=== PATIENT | female | born 1955 | race Caucasian/White ===

== ENCOUNTER 2019-05-27 06:56 | Emergency (ER) | payer OTHER ==
[2019-05-27] MEDS ORDERED: Sodium Chloride 0.9% 1,000 ML IV ONE (07:30)
[2019-05-27 07:59] LABS: % EOSINOPHILS 0.6 % (0.0-5.0); % LYMPHOCYTES 14.9 % (20.0-50.0); % MONOCYTES 3.8 % (2.0-10.0); % NEUTROPHILS 80.7 % (40.0-80.0); HEMATOCRIT 42.5 % (41.0-60); HEMOGLOBIN 14.2 gm/dL (12-16); LYMPHOCYTE ABSOLUTE 1.2 Th/cmm (1.5-3.0); MEAN CELL VOLUME 91.9 fl (81-100); MEAN CORPUSCULAR HEMOGLOBIN 30.7 pg (27.0-31.0); MEAN CORPUSCULAR HGB CONC 33.4 pg (28.0-36.0); MONOCYTE ABSOLUTE 0.3 Th/cmm (0.3-1.0); NEUTROPHILE ABSOLUTE 6.4 Th/cmm (1.8-8.0); PLATELET COUNT 185 Th/cmm (150-400); RED BLOOD COUNT 4.62 Mil/cmm (3.80-5.10); RED CELL DISTRIBUTION WIDTH 12.2 % (11.5-20.0); WHITE BLOOD COUNT 7.9 Th/cmm (4.8-10.8)
[2019-05-27 08:00] LABS: INR 1.01 (0.5-1.4)
[2019-05-27 08:06] LABS: ALB/GLOB RATIO 1.5 (1.0-1.8); ALBUMIN 4.4 gm/dL (3.7-5.3); ALKALINE PHOSPHATASE 71 U/L (34-104); AMYLASE SERUM 32 U/L (29-103); ANION GAP 11.7 (7.0-16.0); BILIRUBIN,TOTAL 0.7 mg/dL (0.3-1.0); BUN - UREA NITROGEN 11 mg/dL (7-25); CALCIUM SERUM 9.2 mg/dL (8.6-10.3); CARBON DIOXIDE 26.8 mEq/L (21.0-31.0); CHLORIDE 102 mEq/L (98-107); CHOLESTEROL 144 mg/dL (<200); CREATININE - SERUM 0.7 mg/dL (0.6-1.2); CREATININE KINASE 56 U/L (30-223); GFR AFRICAN-AMERICAN > 60.0 ml/min (>90); GFR NON AFRICAN-AMERICAN > 60.0 ml/min; GLUCOSE 127 mg/dL (70-105); HDL -HIGH DENSITY LIPOPROTEIN 52 mg/dL (23-92); LIPASE 32 U/L (11-82); POTASSIUM SERUM 3.5 mEq/L (3.5-5.1); SGOT 23 U/L (13-39); SGPT/ALT 30 U/L (7-52); SODIUM SERUM 137 mEq/L (136-145); TOTAL PROTEIN,SERUM 7.3 gm/dL (6.0-8.3); TRIGLYCERIDES 99 mg/dL (<150)
[2019-05-27] MEDS ORDERED: Morphine Sulfate 2 mg/mL 1mL Syr IV STA (08:09)
[2019-05-27] MEDS ORDERED: Morphine Sulfate 2 mg/mL 1mL Syr ONE (08:13)
[2019-05-27 08:58] LABS: URINE SOURCE CLEAN C
[2019-05-27 09:01] LABS: URINE BILIRUBIN NEGATIVE (NEGATIVE); URINE BLOOD TRACE (NEGATIVE); URINE GLUCOSE (UA) NEGATIVE (NEGATIVE); URINE KETONE NEGATIVE (NEGATIVE); URINE LEUKOCYTE ESTERASE NEGATIVE (NEGATIVE); URINE MICROSCOPIC INDICATED? YES; URINE NITRATE NEGATIVE (NEGATIVE); URINE PROTEIN NEGATIVE (NEGATIVE); URINE UROBILINOGEN 0.2 E.U./dL (0.2 - 1.0)
[2019-05-27 09:11] LABS: URINE BACTERIA NONE SEEN /hpf (NONE SEEN); URINE CLARITY CLEAR (CLEAR); URINE COLOR YELLOW; URINE EPITHELIAL CELLS FEW /lpf (FEW); URINE RBC 0-2 /hpf (0-5); URINE WBC 0-2 /hpf (0-5)
[2019-05-27] MEDS ORDERED: IOHEXOL 300mgI/mL 100 ML VIAL ONE (09:56)
--- NOTE | 2019-05-27 10:47 | Diagnostic Imaging Report ---
CT scan abdomen and pelvis with intravenous contrast HISTORY: Pain Total DLP equals 622 CTDI equals 12.5 Following administration of intravenous contrast, axial sections were obtained from the xiphoid process down to the pubic symphysis The liver exhibits a normal size and contour. No focal lesions. The spleen appears normal. No focal abnormality seen within the pancreas. No focal renal lesions Exam of the pelvis demonstrates thickening of the mckeon through a segment of the sigmoid colon. Numerous diverticula are seen. Slight haziness of the adjacent pericolonic fat. Diverticulitis cannot be excluded. No discrete abscess formation is seen. No abnormality seen in the region of appendix. General changes noted to the spine. IMPRESSION: 1. Abnormal changes along a segment of the sigmoid colon. Diverticulitis cannot be excluded. No discrete abscess formation. Clinical correlation is needed.
[2019-05-27] MEDS ORDERED: Levofloxacin 500mg/100mL 500 MG/100 ML BAG IV ONE ×2 (11:25→11:57)
--- NOTE | 2019-05-27 14:41 | ED Physician Chart ---
ED Chief Complaint/HPI - Patient Information Date Seen:: 05/27/19 Time Seen:: 07:00 Chief Complaint:: Abdominal Pain History of Present Illness:: onset x 2 days of diffuse crampy abdominal pain, N/V/D x 10; pt denies trauma, H /As, S/T, neck pain, C/P, SOB, cough, A/C, fever, chills, or urinary s/s Allergies:: Allergies Allergy/AdvReac Type Severity Reaction Status Date / Time ibuprofen [From Motrin] Allergy Verified 05/27/19 07:11 Vitals:: Vital Signs - 8 hr 05/27/19 05/27/19 05/27/19 07:05 08:26 10:30 Temp 98.3 F HR 85 63 82 RR 18 16 16 BP 141/76 146/73 128/71 O2 Sat % 97 97 98 05/27/19 13:00 Temp HR 88 RR 16 BP 143/75 O2 Sat % 97 Historian:: Patient, Family Member Review:: Nurse's Note Reviewed, Old Chart Reviewed ED Review of Systems - Review of Systems General/Constitutional: No fever, No chills, No weight loss, No weakness, No diaphoresis, No edema, No loss of appetite Skin: No skin lesions, No rash, No bruising Head: No headache, No light-headedness Eyes: No loss of vision, No pain, No diplopia ENT: No earache, No nasal drainage, No sore throat, No tinnitus Neck: No neck pain, No swelling, No thyromegaly, No stiffness, No mass noted Cardio Vascular: No chest pain, No palpitations, No PND, No orthopnea, No edema Pulmonary: No SOB, No cough, No sputum, No wheezing GI: No nausea, No vomiting, No diarrhea, No pain, No melena, No hematochezia, No constipation, No hematemesis G/U: No dysuria, No frequency, No hematuria, No nacturia 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, No abnormal vaginal bleed, No contraction Musculoskeletal: No bone or joint pain, No back pain, No muscle pain Endocrine: No polyuria, No polydipsia Psychiatric: No prior psych history, No depression, No anxiety, No suicidal ideation, No homicidal ideation, No auditory hallucination, No visual hallucination Hematopoietic: No bruising, No lymphadenopathy Allergic/Immuno: No urticaria, No angioedema Neurological: No syncope, No focal symptoms, No weakness, No paresthesia, No headache, No seizure, No dizziness, No confusion, No vertigo ED Past Medical History - Past Medical History Obtainable: Yes Past Medical History: HTN Family History: HTN Social History: Non Smoker, No Alcohol, No Drug Use, Surgical History: None Psychiatricy History: None Medication: Reviewed Family Medical History - Family Member Mother History Unknown: Yes ED Physical Exam - Physical Examination General/Constitutional: Awake, Well-developed, well-nourished, Alert, No distress, GCS 15, Non-toxic appearing, Ambulatory Head: Atraumatic Eyes: Lids, conjuctiva normal, PERRL, EOMI Skin: Nl inspection, No rash, No skin lesions, No ecchymosis, Well hydrated, No lymphadenopathy ENMT: External ears, nose nl, TM canals nl, Nasal exam nl, Lips, teeth, gums nl , Oropharynx nl, Tonsils nl Neck: Nontender, Full ROM w/o pain, No JVD, No nuchal rigidity, No bruit, No mass, No stridor Respiratory: Nl effort/Exclusion, Clear to Auscultation, No Wheeze/Rhonchi/Rales Cardio Vascular: RRR, No murmur, gallop, rubs, NL S1 S2, Carotid/Femoral/Distal pulses equal bilaterally GI: No tenderness/rebounding/guarding, No organomegaly, No hernia, Normal BS's, Nondistended, No mass/bruits, No McBurney tenderness, Rectum exam nl Other GI comments:: + LLQ Tenderness; no pulsatile masses : No CVA tenderness Extremities: No tenderness or effusion, Full ROM, normal strength in all extremities, No edema, Normal digits & nails Neuro/Psych: Alert/oriented, DTR's symmetric, Normal sensory exam, Normal motor strength, Judgement/insight normal, Mood normal, Normal gait, No focal deficits Misc: Normal back, No paraspinal tenderness ED Labs/Radiology/EKG Results - Lab Results Results: Laboratory Tests 05/27/19 05/27/19 05/27/19 07:35 07:35 07:35 WBC 7.9 RBC 4.62 Hgb 14.2 Hct 42.5 MCV 91.9 MCH 30.7 MCHC Differential 33.4 RDW 12.2 Plt Count 185 MPV 8.6 Neutrophils % 80.7 H Lymphocytes % 14.9 L Monocytes % 3.8 Eosinophils % 0.6 Basophils % 0.0 PT 10.5 INR 1.01 Sodium 137 Potassium 3.5 Chloride 102 Carbon Dioxide 26.8 Anion Gap 11.7 BUN 11 Creatinine 0.7 Est GFR ( Amer) > 60.0 Est GFR (Non-Af Amer) > 60.0 BUN/Creatinine Ratio 15.7 Glucose 127 H Calcium 9.2 Total Bilirubin 0.7 AST 23 ALT 30 Alkaline Phosphatase 71 Creatine Kinase 56 Troponin I B-Natriuretic Peptide Total Protein 7.3 Albumin 4.4 Globulin 2.9 Albumin/Globulin Ratio 1.5 Triglycerides 99 Cholesterol 144 LDL Cholesterol Direct 82 HDL Cholesterol 52 Amylase 32 Lipase 32 Serum , Qual Urine Source Urine Color Urine Clarity Urine pH Ur Specific [place] Urine Protein Urine Glucose (UA) Urine Ketones Urine Blood Urine Nitrate Urine Bilirubin Urine Urobilinogen Ur Leukocyte Esterase Urine RBC Urine WBC Ur Epithelial Cells Urine Bacteria 05/27/19 05/27/19 05/27/19 07:35 07:35 07:35 WBC RBC Hgb Hct MCV MCH MCHC Differential RDW Plt Count MPV Neutrophils % Lymphocytes % Monocytes % Eosinophils % Basophils % PT INR Sodium Potassium Chloride Carbon Dioxide Anion Gap BUN Creatinine Est GFR ( Amer) Est GFR (Non-Af Amer) BUN/Creatinine Ratio Glucose Calcium Total Bilirubin AST ALT Alkaline Phosphatase Creatine Kinase Troponin I < 0.01 L B-Natriuretic Peptide 13.5 Total Protein Albumin Globulin Albumin/Globulin Ratio Triglycerides Cholesterol LDL Cholesterol Direct HDL Cholesterol Amylase Lipase Serum , Qual NEGATIVE Urine Source Urine Color Urine Clarity Urine pH Ur Specific [place] Urine Protein Urine Glucose (UA) Urine Ketones Urine Blood Urine Nitrate Urine Bilirubin Urine Urobilinogen Ur Leukocyte Esterase Urine RBC Urine WBC Ur Epithelial Cells Urine Bacteria 05/27/19 08:47 WBC RBC Hgb Hct MCV MCH MCHC Differential RDW Plt Count MPV Neutrophils % Lymphocytes % Monocytes % Eosinophils % Basophils % PT INR Sodium Potassium Chloride Carbon Dioxide Anion Gap BUN Creatinine Est GFR ( Amer) Est GFR (Non-Af Amer) BUN/Creatinine Ratio Glucose Calcium Total Bilirubin AST ALT Alkaline Phosphatase Creatine Kinase Troponin I B-Natriuretic Peptide Total Protein Albumin Globulin Albumin/Globulin Ratio Triglycerides Cholesterol LDL Cholesterol Direct HDL Cholesterol Amylase Lipase Serum , Qual Urine Source CLEAN C Urine Color YELLOW Urine Clarity CLEAR Urine pH 6.0 Ur Specific [place] <= 1.005 Urine Protein NEGATIVE Urine Glucose (UA) NEGATIVE Urine Ketones NEGATIVE Urine Blood TRACE Urine Nitrate NEGATIVE Urine Bilirubin NEGATIVE Urine Urobilinogen 0.2 Ur Leukocyte Esterase NEGATIVE Urine RBC 0-2 Urine WBC 0-2 Ur Epithelial Cells FEW Urine Bacteria NONE SEEN Comments:: Reviewed - Radiology Results Comments:: + Diverticulitis - EKG Interpretations EKG Time:: 07:37 Rate & Rhythm: 81; NSR Comments:: non-specific st-t changes ED Septic Shock - . Is Septic Shock (SBP<90, OR Lactate>4 mmol\L) present?: No - <6hrs of presentation: Vital Signs: Vital Signs - 8 hr 05/27/19 05/27/19 05/27/19 07:05 08:26 10:30 Temp 98.3 F HR 85 63 82 RR 18 16 16 BP 141/76 146/73 128/71 O2 Sat % 97 97 98 05/27/19 13:00 Temp HR 88 RR 16 BP 143/75 O2 Sat % 97 ED Reassessment (Disposition) - Reassessment Reassessment Condition:: Improved - Diagnosis Diagnosis:: Abdominal Pain; N/V/D; AGE; Diverticulitis - Aftercare/Follow up Instructions Aftercare/Follow-Up Instructions:: Counseled pt regarding lab results/diagnosis & need follow up, Counseled pt & family regarding lab results/diagnosis & need follow up - Patient Disposition Discharge/Transfer:: Acute Care (other hosp) Time Called:: 0900 Time Responded:: 09:00 Admitted to:: Med/Surg Condition at Disposition:: Stable, Improved (pt to be transferred via [facility] as a direct hospital admission to [facility])
== END 2019-05-27 15:55 | disposition short-term general hospital (02) ==
LOC: ER 06:56
DX: K52.9 Noninfective gastroenteritis and colitis, unspecified (principal); K57.92 Diverticulitis of intestine, part unspecified, without perforation or abscess without bleeding; I10 Essential (primary) hypertension; Z88.6 Allergy status to analgesic agent
CPT/HCPCS: 99285; 96365; 96361; 96375; 93005; 74177; 84484; 83880; 36415; 85025; 85610; 81001; 82150; 82550; 84703; 83690; 80053; 80061; J2270; J2405; J1956; J7030; Q9967